=== PATIENT | female | born 1960 | race Two or more races ===

== ENCOUNTER 2020-06-17 09:08 | Day surgery (SDC) | payer OTHER ==
[~2020-06-17 09:08] MED LIST: MULTIPLE VITAM1 EAC2 PO; NEXIUM40 M1 PO; PRE PROTEIN PO
== END 2020-06-18 03:49 | disposition home or self-care (01) ==
LOC: CIR.AMB 09:08
PROVIDERS: ATTEND Plastic Surgery
DX: E65 Localized adiposity (principal); N62 Hypertrophy of breast; M62.08 Separation of muscle (nontraumatic), other site; Z20.828 Contact with and (suspected) exposure to other viral communicable diseases